=== PATIENT | male | born 1970 | race Caucasian/White ===

== ENCOUNTER 2019-06-09 21:15 | Inpatient (IN) | payer MEDICAID, OTHER ==
[~2019-06-09] VITALS: Ht 165.1 cm; Wt 99.3 kg
[~2019-06-09 21:15] MED LIST: BENA20TA PO; HYDR-5123 PO; LEVO0.173 PO; OMEP-113 PO
[2019-06-09 21:23] VITALS: BP 128/57
--- NOTE | 2019-06-09 21:26 | NUR ---
PT AMBULATED TO BED 4.
[2019-06-09] MEDS ORDERED: NITROGLYCERIN 0.4 MG TAB SL STA (21:27)
[2019-06-09] MEDS ORDERED: SODIUM CHLORIDE FLUSH 10 ML SYR IVF STA (21:27)
--- NOTE | 2019-06-09 21:30 | NUR ---
48/M PRESENTED TO ED. C/O CHEST PAIN X1 DAY. 10 PAIN REPORTED. INTERMITTENT OVER 3 DAYS. STATES PAIN PRECIPITATED BY BREATHING ON OCCASION THROUGH THE DAY. LEFT SIDED CP. NON-RADIATING. DENIES N/V. NO SOB NOTED. VSS. STATES DID NOT TAKE MEDICATION TO RELIEVE PAIN UPON ARRIVING TO ED. MED HX HTN, HYPOTHYROID. RX DOES NOT REMEMBER MED NAMES. DENIES ALLERGIES. WILL CONTINUE TO MONITOR.
--- NOTE | 2019-06-09 21:43 | NUR ---
X-Ray at bedside.
--- NOTE | 2019-06-09 21:57 | NUR ---
IV ESTABLISHED IN LAC 20G. 1 ATTEMPT. TOLERATED WELL. PAIN HAS DECREASED TO 3/10. NO SIGNS OF DISTRESS. WILL COTNINUE TO MONITOR.
[2019-06-09 22:03] LABS: BASOPHILS # (AUTO) 0.1 K/uL (0.00-0.22); BASOPHILS % (AUTO) 0.8 % (0.0-2.0); EOSINOPHILS # (AUTO) 1.1 K/uL (0-0.4); EOSINOPHILS % (AUTO) 11.5 % (0.0-4.0); HEMATOCRIT 45.5 % (36-52); HEMOGLOBIN 15.3 g/dL (12.0-18.0); LYMPHOCYTES # (AUTO) 3.6 K/uL (2.0-11.5); LYMPHOCYTES % (AUTO) 39.3 % (20.5-51.1); MEAN CORPUSCULAR HEMOGLOBIN 29 pg (27-31); MEAN CORPUSCULAR HGB CONC 34 g/dL (33-37); MEAN CORPUSCULAR VOLUME 86.8 fL (80-94); MONOCYTES # (AUTO) 0.8 K/uL (0.8-1.0); MONOCYTES % (AUTO) 8.5 % (1.7-9.3); NEUTROPHILS # (AUTO) 3.6 K/uL (1.8-7.7); NEUTROPHILS % (AUTO) 39.9 % (42.2-75.2); PLATELET COUNT (AUTO) 273 K/uL (140-450); RED BLOOD CELL COUNT(AUTO) 5.24 MIL/uL (4.20-6.10); RED CELL DISTRIBUTION WIDTH 14.7 % (11.6-13.7); WHITE BLOOD COUNT (AUTO) 9.1 K/uL (4.8-10.8)
[2019-06-09 22:15] LABS: ANION GAP 12.4 (8-16); CARBON DIOXIDE 24.2 mmol/L (21-32); CREATININE 1.2 mg/dL (0.7-1.3); POTASSIUM 3.6 mmol/L (3.5-5.1)
--- NOTE | 2019-06-09 22:15 | NUR ---
Dr. Thomas examining patient.
[2019-06-09 22:32] LABS: ALBUMIN 3.1 g/dL (3.4-5.0); TOTAL BILIRUBIN 0.3 mg/dL (0.0-1.0)
[2019-06-09] MEDS ORDERED: hePARIN / DEXT 5% PREMIX 250 ML IV ONE (22:45)
[2019-06-09] MEDS ORDERED: NITROGLYCERIN 0.4 MG TAB SL ONE (22:45)
[2019-06-09] MEDS ORDERED: HEPARIN PER PHARMACY MC PRN ×2 (22:45→23:40)
[2019-06-09] MEDS ORDERED: NACL 0.9% 1,000 ML IV ONE (22:45)
[2019-06-09] MEDS ORDERED: ATOR20TA PO (22:48)
--- NOTE | 2019-06-09 22:56 | NUR ---
Dr. Rea examining patient.
[2019-06-09 23:30] VITALS: BP 119/69
--- NOTE | 2019-06-09 23:30 | NUR ---
Patient will be admitted to care of [facility]. Admited to TELE FLOOR. Will go to room 105 BED A. Belongings list completed. Report to ARABELLA MILLIGAN. BELONGINGS KEPT WITH PATIENT. AT BEDSIDE. PT IN STABLE CONDITION.
--- NOTE | 2019-06-09 23:30 | NUR ---
REVCIEVED PT AAOX4 , WITH C/O CHEST PAIN /GURNEY FROM ER , ON PRODUCT BUILDER, IV SITE INTACT AND PATENT , AMBULATES TO BED , ADMISSION ASSESSMENT DONE , MRSA SPECIMEN COLLECTED AND SENT TO LAB.PLAN OF CARE DISCUSSED AND VEBALIZE UNDERSTANDING . PUT ON FALL /SAFETY PRECAUTION PROTOCOL , CALL LIGHT WITHIN REACH .WILL CONT. TO MONITOR.-ON CLOSELY WATCH.
--- NOTE | 2019-06-09 23:30 | NUR ---
ENDORSED TO BIOLOGICAL INSPECTOR RN ARABELLA OF [place] STILL INFUSING. AND HEPRIN DRIP UNABLE TO BE ADMINISTERED IN ED DUE TO NO PTT LAB VALUE AT THIS TIME. ENDORSED HEPRIN DRIP ORDERS WILL BE CONTINUED ON MST FLOOR PER DR ORDERS.
[2019-06-09] MEDS ORDERED: DOCUSATE SODIUM 100 MG GELCAP PO PRN (23:35)
[2019-06-09] MEDS ORDERED: ACETAMINOPHEN 325 MG TAB PO PRN (23:35)
[2019-06-09] MEDS ORDERED: HYDROcodone/APAP 7.5/325 MG 1 TAB PO PRN (23:35)
[2019-06-09] MEDS ORDERED: FAMOTIDINE 20 MG/2 ML VIAL IV PRN (23:35)
[2019-06-09] MEDS ORDERED: LORazepam 2 MG/ML VIAL IM/IVP PRN (23:35)
[2019-06-09] MEDS ORDERED: ONDANSETRON 4 MG/2 ML VIAL IM/IVP PRN (23:35)
[2019-06-09] MEDS ORDERED: hePARIN / DEXT 5% PREMIX 250 ML IV SCH (23:40)
[2019-06-10] MEDS ORDERED: ASPIRIN 81 MG TAB.CHEW PO SCH
[2019-06-10] MEDS ORDERED: hePARIN / DEXT 5% PREMIX 250 ML IV SCH (00:05)
[2019-06-10 00:14] LABS: PROTHROMBIN TIME 10.2 secs (10.8-13.4)
[2019-06-10] MEDS: MORPHINE SULFATE 2 MG/ML SYR IVP PRN (00:16)
[2019-06-10 00:22] LABS: CHOL/HDL RATIO 7.1 (1-4.5); FREE T4 (FREE THYROXINE) 1.09 ng/dL (0.76-1.46); PHOSPHORUS 4.2 mg/dL (2.5-4.9); THYROID STIMULATING HORMONE 0.59 uIU/mL (0.34-3.74)
--- NOTE | 2019-06-10 01:11 | NUR ---
HEPARIN DRIP GIVEN ORDERED .EXPLAIN TO THE PT THE INDICATION AND SIDE EEFECTS OF MEDICINE -VERBALIZE UNDERSTANDING.
--- NOTE | 2019-06-10 02:00 | NUR ---
MADE ROUINDS , RESP EVEN AND UNLABORED , WITH MINIMIZE CHEST PAIN HE SAID , WILL CONT. TO MONITOR. , ACLL LIGHT WITHIN REACH
[2019-06-10 04:00] VITALS: BP 119/79
--- NOTE | 2019-06-10 04:00 | NUR ---
MADE ROUNDS , MINIMIZE CHEST PAIN HE SAID ,RESP. EVEN AND UNLABORED , CALL LIGHT WITHIN REACH , WILL CONT. TO MONITOR.
[2019-06-10] MEDS: PANTOPRAZOLE 40 MG INJ VIAL IVP SCH (06:23)
[2019-06-10] MEDS: LEVOTHYROXINE 0.1 MG, LEVOTHYROXINE 0.075 MG PO SCH ×2 (06:26)
[2019-06-10] MEDS ORDERED: LEVOTHYROXINE 0.025 MG TAB PO SCH (06:30)
--- NOTE | 2019-06-10 07:14 | NUR ---
ENDORSED TO AM SHIFT FOR CONT. OF CARE .
--- NOTE | 2019-06-10 07:15 | NUR ---
RECEIVED REPORT FROM DIRECTOR BROADCAST NURSE. PATIENT LYING DOWN IN BED SLEEPING, AROUSABLE BY VOICE. NO DISTRESS NOTED. DENIES ANY PAIN AT THIS TIME. AAOX4, CALM, COOPERATIVE, SKIN COLOR APPROPRIATE TO ETHNICITY, WARM TO TOUCH. SKIN INTACT. RESPIRATIONS EVEN, UNLABORED, ON ROOM AIR. ABDOMEN SOFT, OBESE. IV SITES INTACT, PATENT, AND INFUSING HEP DRIP AND IVF PER MD ORDERS. REVIEWED PLAN OF CARE WITH PATIENT. PATIENT VERBALIZED UNDERSTANDING. SAFETY MEASURES IN PLACE, CALL LIGHT WITHIN REACH. WILL CONTINUE TO MONITOR.
[2019-06-10 08:00] VITALS: BP 125/87
[2019-06-10 08:09] LABS: BASOPHILS # (AUTO) 0.1 K/uL (0.00-0.22); BASOPHILS % (AUTO) 0.9 % (0.0-2.0); EOSINOPHILS # (AUTO) 1.1 K/uL (0-0.4); EOSINOPHILS % (AUTO) 14.2 % (0.0-4.0); HEMATOCRIT 45.9 % (36-52); HEMOGLOBIN 15.3 g/dL (12.0-18.0); LYMPHOCYTES # (AUTO) 2.9 K/uL (2.0-11.5); LYMPHOCYTES % (AUTO) 36.6 % (20.5-51.1); MEAN CORPUSCULAR HEMOGLOBIN 29 pg (27-31); MEAN CORPUSCULAR HGB CONC 33 g/dL (33-37); MEAN CORPUSCULAR VOLUME 87.6 fL (80-94); MONOCYTES # (AUTO) 0.5 K/uL (0.8-1.0); MONOCYTES % (AUTO) 5.8 % (1.7-9.3); NEUTROPHILS # (AUTO) 3.4 K/uL (1.8-7.7); NEUTROPHILS % (AUTO) 42.5 % (42.2-75.2); PLATELET COUNT (AUTO) 264 K/uL (140-450); RED BLOOD CELL COUNT(AUTO) 5.24 MIL/uL (4.20-6.10)
[2019-06-10 08:22] LABS: ANION GAP 14.5 (8-16); CARBON DIOXIDE 25.5 mmol/L (21-32); CREATININE 1.1 mg/dL (0.7-1.3)
[2019-06-10] MEDS: ASPIRIN 81 MG TAB.CHEW PO SCH (08:52)
[2019-06-10] MEDS: BENAZEPRIL 20 MG TAB PO SCH (08:54)
--- NOTE | 2019-06-10 09:00 | NUR ---
PER NIGHT RN AND PER PATIENT, PATIENT HAD BM LAST NIGHT, HOWEVER, IT WAS A NORMAL, FORMED BM, THUS NOT MEETING THE CDIFF CRITERIA PER NIGHT RN AND NIGHT CIRCLE EDGER REPORTS. NOTIFIED DR. TELLEZ. DR. TELLEZ VERBALIZED UNDERSTANDING.
[2019-06-10] MEDS: METOPROLOL 25 MG TAB PO SCH ×2 (09:01→20:50)
--- NOTE | 2019-06-10 09:08 | NUR ---
PATIENT SITTING IN BED. NO DISTRESS NOTED. DENIES ANY PAIN. SCHEDULED MEDICATIONS DUE GIVEN. WILL CONTINUE TO MONITOR.
[2019-06-10] MEDS ORDERED: LIDOCAINE VISCOUS 2% 20 ML UDC PO SCH (09:25)
[2019-06-10] MEDS ORDERED: ALUMINUM HYD/MAG/SIMETHICONE 30 ML UDC PO SCH (09:25)
[2019-06-10] MEDS ORDERED: DICYCLOMINE HCL LIQUID 10 MG/5 ML UDC PO SCH (09:25)
--- NOTE | 2019-06-10 10:15 | NUR ---
DR. ALVAREZ AT BEDSIDE REVIEWING PLAN OF CARE WITH PATIENT. PER DR. ALVAREZ VERBAL ORDERS, DISCONTINUE HEPARIN DRIP AT THIS TIME. WILL CONTINUE TO MONITOR.
[2019-06-10 12:00] VITALS: BP 108/75
--- NOTE | 2019-06-10 12:14 | NUR ---
PATIENT SITTING IN BED WITH LUNCH TRAY. FAMILY MEMBER AT BEDSIDE. SCHEDULED MEDICATIONS DUE GIVEN. WILL CONTINUE TO MONITOR.
--- NOTE | 2019-06-10 14:30 | NUR ---
PATIENT SITTING DOWN IN BED TALKING WITH FAMILY MEMBERS AT BEDSIDE. CONDITION UNCHANGED. WILL CONTINUE TO MONITOR.
[2019-06-10 16:00] VITALS: BP 115/78
--- NOTE | 2019-06-10 16:00 | NUR ---
PATIENT WALING AROUND [facility] WITH STEADY GAIT. FAMILY AT BEDSIDE. WILL CONTINUE TO MONITOR.
[2019-06-10] MEDS: NACL 0.9% 1,000 ML IV SCH ×2 (17:50)
--- NOTE | 2019-06-10 18:30 | NUR ---
PATIENT SITTING DOWN IN BED TALKING WITH FAMILY MEMBERS AT BEDSIDE. CONDITION UNCHANGED. WILL CONTINUE TO MONITOR.
--- NOTE | 2019-06-10 19:19 | NUR ---
GAVE REPORT TO MUTUAL FUND MANAGER NURSE FOR CONTINUITY OF CARE. PATIENT IN STABLE CONDITION.
--- NOTE | 2019-06-10 19:20 | NUR ---
RECEIVED PT ON BED, AAOX4, ABLE TO MAKE NEEDS KNOWN, VITAL SIGNS STABLE, DENIES ANY PAIN, NO SOB NOTED, IVF INFUSING WELL, PLAN OF CARE DISCUSSED, SAFETY MEASURES IN PLACE, CALL LIGHT WITHIN REACH.
[2019-06-10 20:00] VITALS: BP 122/82
[2019-06-10] MEDS: ATORVASTATIN 20 MG TAB PO SCH (20:49)
--- NOTE | 2019-06-10 21:00 | NUR ---
DUE PO MEDS ADMINISTERED WITH EDUCATION PROVIDED, PT AMBULATED TO BR WITH STEADY GAIT, VOIDED FREELY AND HAD A BM, STOOL IS SOFT, NOT QUALIFIED FOR C-DIFF, CHARGE CARLOS MADE AWARE, URINE SPECIMEN SENT TO LAB FOR TEST, ALL NEEDS ATTENDED.
[2019-06-10 22:44] LABS: APPEARANCE,URINE CLEAR (CLEAR); BILIRUBIN,URINE NEGATIVE (NEGATIVE); BLOOD, URINE TRACE-I (NEGATIVE); LEUKOCYTE ESTERASE ,URINE NEGATIVE (NEGATIVE); NITRITE, URINE NEGATIVE (NEGATIVE); PH,URINE 5.5 (5.0-9.0); UGLUCOSE NEGATIVE (NEGATIVE)
[2019-06-10 22:46] LABS: COLOR,URINE STRAW (YELLOW)
[2019-06-10 23:57] LABS: RBC,URINE 0-5 /HPF (0-5); WBC,URINE NONE SEEN /HPF (0-5)
[2019-06-11] VITALS: BP 119/76
--- NOTE | 2019-06-11 | NUR ---
PT SLEEPING, EASILY AROUSABLE, VITAL SIGNS STABLE, SB ON TELE, ASYMPTOMATIC, DENIES ANY PAIN, IVF INFUSING WELL, CONTINUE TO MONITOR CLOSELY.
[2019-06-11 04:00] VITALS: BP 113/75
--- NOTE | 2019-06-11 04:00 | NUR ---
PT SLEEPING, EASILY AROUSABLE TO NAME, VITAL SIGNS STABLE, SB-SR ON TELE, DENIES ANY PAIN, NO SOB NOTED, IVF INFUSING WELL, MONITORED CLOSELY.
[2019-06-11] MEDS: LEVOTHYROXINE 0.1 MG, LEVOTHYROXINE 0.075 MG PO SCH ×2 (05:51)
[2019-06-11] MEDS: PANTOPRAZOLE 40 MG INJ VIAL IVP SCH (05:53)
--- NOTE | 2019-06-11 05:55 | NUR ---
DUE PO MEDS GIVEN, TOLERATED WELL, DENIES ANY PAIN, IVF INFUSING WELL, MONITORED CLOSELY.
--- NOTE | 2019-06-11 06:55 | NUR ---
PT SCHEDULE FOR LEXISCAN AT 1400 TODAY AND PT STATED THAT HE CAN'T TOLERATE WITHOUT EATING FOR THAT LONG TIME, PER REPORT FROM TOBIAS MILLIGAN, DR ALVAREZ IS KATHI FOR PT TO HAVE LIGHT BREAKFAST WITHOUT CAFFEINE THIS MORNING, TALKED TO DR CAMACHO AND MADE HIM AWARE, STATED IT'E KATHI TO HAVE BREAKFAST IF DR ALVAREZ IS KATHI WITH IT, LEFT MESSAGE TO DIETARY, WILL ENDORSE.
--- NOTE | 2019-06-11 07:30 | NUR ---
PT AWAKE, NO SIGNS OF DISTRESS, REPORT GIVEN TO SRINI MATTA FOR CONTINUITY OF CARE.
--- NOTE | 2019-06-11 07:35 | NUR ---
RECEIVED REPORT FROM SERVICE CENTER TECHNICIAN NURSE. PATIENT LYING DOWN IN BED SLEEPING, AROUSABLE TO VOICE. NO DISTRESS NOTED. DENIES ANY PAIN AT THIS TIME. AAOX4, CALM, COOPERATIVE, SKIN COLOR APPROPRIATE TO ETHNICITY, WARM TO TOUCH. SKIN IS INTACT. RESPIRATIONS EVEN AND UNLABORED, ON ROOM AIR. ABDOMEN SOFT AND NON-TENDER. IV SITES INTACT, PATENT, AND INFUSING NS @ 100ML/HR. REVIEWED PLAN OF CARE WITH PATIENT. PATIENT VERBALIZED UNDERSTANDING. SAFETY MEASURES IN PLACE, CALL LIGHT WITHIN REACH. WILL MONITOR PT CLOSELY.
[2019-06-11 08:00] VITALS: BP 123/81
[2019-06-11] MEDS: BENAZEPRIL 20 MG TAB PO SCH (08:25)
[2019-06-11] MEDS: METOPROLOL 25 MG TAB PO SCH ×2 (08:25→20:51)
--- NOTE | 2019-06-11 08:25 | NUR ---
MORNING BP MEDS NOT ADMINISTERED DUE TO PT HAVING STRESS TEST AND LEXISCAN LATER. PER MD ORDERS TO HOLD MORNING BP MEDS. PT BP STABLE AT THIS TIME AT 123/81 AND HR 75.
--- NOTE | 2019-06-11 08:27 | NUR ---
PATIENT HAS BEEN SCREENED AND CATEGORIZED HIGH NUTRITION RISK. PATIENT WILL BE SEEN WITHIN 1-2 DAYS OF ADMISSION. 06/11/[address]
[2019-06-11] MEDS: ASPIRIN 81 MG TAB.CHEW PO SCH (08:41)
--- NOTE | 2019-06-11 08:54 | NUR ---
ADMINISTERED MORNING MEDS TO PT. PT TOLERATED THEM WILL. WILL CONTINUE TO ROUND FREQUENTLY ON PT. BED IN LOW POSITION, CALL LIGHT WITHIN REACH.
--- NOTE | 2019-06-11 10:47 | NUR ---
PT RESTING IN BED. ALL NEEDS MET. WILL CONTINUE TO ROUND FREQUENTLY ON PT. BED IN LOW POSITION, CALL LIGHT WITHIN REACH.
[2019-06-11 12:00] VITALS: BP 119/78
--- NOTE | 2019-06-11 12:38 | NUR ---
PT RESTING IN BED WITH AT BEDSIDE. PT AWAITING LEXISCAN. ALL NEEDS MET. WILL CONTINUE TO ROUND FREQUENTLY ON PT. BED IN LOW POSITION, CALL LIGHT WITHIN REACH.
[2019-06-11] MEDS: MORPHINE SULFATE 2 MG/ML SYR IVP PRN (13:26)
[2019-06-11] MEDS ORDERED: REGADENOSON 0.4 MG/5 ML SYR IV ONE (14:00)
--- NOTE | 2019-06-11 14:02 | NUR ---
PT TAKEN TO NUCLEAR MEDICINE FOR LEXISCAN. PT LEFT IN STABLE CONDITION.
--- NOTE | 2019-06-11 15:29 | NUR ---
06/11/19 RD INITIAL ASSESSMENT COMPLETED PLEASE REFER TO NUTRITION ASSESSMENT UNDER CARE ACTIVITY FOR ESTIMATED NUTRITIONAL NEEDS. 1. CONTINUE NPO MEDICALLY NECESSARY 2. WHEN MEDICALLY APPROPRIATE CONSIDER ADVANCING DIET TO CARDIAC 3. RD OFFERED NUTRITION EDUCATION ON HEART HEALTHY DIET 4. RD TO FOLLOW-UP 5-7 DAYS, LOW RISK [address]
[2019-06-11 16:00] VITALS: BP 125/76
--- NOTE | 2019-06-11 16:19 | NUR ---
PT RETURN[facility] FROM [facility]. PT IN STABLE CONDITION. VITAL SIGNS STABLE. WILL CONTINUE TO ROUND FREQUENTLY ON PT.
[2019-06-11] MEDS: NACL 0.9% 1,000 ML IV SCH (16:40)
--- NOTE | 2019-06-11 18:34 | NUR ---
PT RESTING IN BED WITH AT BEDSIDE. ALL NEEDS MET. WILL CONTINUE TO ROUND FREQUENTLY ON PT.
--- NOTE | 2019-06-11 19:39 | NUR ---
ENDORSED PT TO INSTRUMENTATION MANAGER FOR CONTINUITY OF CARE. PT IN STABLE CONDITION AT THIS TIME.
--- NOTE | 2019-06-11 19:40 | NUR ---
RECEIVED BEDSIDE REPORT FROM DAY SHIFT NURSE. SPOUSE AT BEDSIDE. NO S/S OF SOB NOTED ON ROOM AIR. NO DISTRESS NOTED. DENIES ANY PAIN AT THIS TIME. AAOX4, ABLE TO MAKE NEED KNOWN. COOPERATIVE, SKIN WARM AND DRY TO TOUCH. SKIN IS INTACT. IV SITES ON LAC 20G. INTACT, PATENT, AND ASYMPTOMATIC. REVIEWED PLAN OF CARE WITH PATIENT. PATIENT VERBALIZED UNDERSTANDING. SAFETY MEASURES IN PLACE, CALL LIGHT WITHIN REACH. WILL MONITOR.
[2019-06-11 20:00] VITALS: BP_SYST 114; BP_SYST 119; BP_DIAS 72; BP_DIAS 75
[2019-06-11] MEDS: ATORVASTATIN 20 MG TAB PO SCH (20:46)
--- NOTE | 2019-06-11 20:50 | NUR ---
ADMINISTERED LIPITOR AND HEPARIN MD ORDERED. PT TOLERATED WELL. METOPROLOL HELD D/T PT HAVING STRESS TEST AND LEXISCAN. PER MD ORDERS TO HOLD. PT BP STABLE AT THIS TIME AT 114/72 AND HR 74.
--- NOTE | 2019-06-11 23:50 | NUR ---
VS CHECKED. WITHIN NORMAL RANGE. WILL CONTINUE TO MONITOR.
[2019-06-12] VITALS: BP 119/75
--- NOTE | 2019-06-12 02:05 | NUR ---
PT SLEEPING IN BED. BREATHING EVEN AND UNLABORED. BED IN LOW POSITION, CALL LIGHT WITHIN REACH.
[2019-06-12 04:00] VITALS: BP 119/78
--- NOTE | 2019-06-12 04:00 | NUR ---
VS CHECKED, WITHIN PT'S BASELINE. WILL CONTINUE TO MONITOR.
[2019-06-12] MEDS: LEVOTHYROXINE 0.1 MG, LEVOTHYROXINE 0.075 MG PO SCH ×2 (05:59)
[2019-06-12] MEDS: PANTOPRAZOLE 40 MG INJ VIAL IVP SCH (05:59)
--- NOTE | 2019-06-12 05:59 | NUR ---
GIVEN SYNTHROID AND PROTONIX MD ORDERED. PT TOLERATED WELL.
--- NOTE | 2019-06-12 06:58 | NUR ---
PT STATES NO DIARRHEA SINCE ADMISSION ON 06/09/19. D/C C.DIFF
--- NOTE | 2019-06-12 07:25 | NUR ---
RECEIVED REPORT FROM PAINT ROLLER COVER MACHINE SETTER RNMINE. PATIENT IS AWAKE AND RESTING IN BED. NO SIGNS OF DISTRESS ON RA, NO C/O PAIN, NO CHEST PAIN FOR 24 HOURS. RESPIRATIONS EVEN AND UNLABORED. BED IS LOW, CALL LIGHT IN REACH. IV INFUSING WELL TO L AC 20 GAUGE AT 10ML/HR. NO SIGNS OF IRRITATION AT IV SITE.
[2019-06-12 07:41] LABS: PHOSPHORUS 3.5 mg/dL (2.5-4.9)
[2019-06-12 07:50] LABS: ANION GAP 14.9 (8-16); CARBON DIOXIDE 25.4 mmol/L (21-32); POTASSIUM 4.3 mmol/L (3.5-5.1)
[2019-06-12 08:00] VITALS: BP 124/77
[2019-06-12 08:15] LABS: BASOPHILS # (AUTO) 0.1 K/uL (0.00-0.22); EOSINOPHILS # (AUTO) 0.9 K/uL (0-0.4); HEMATOCRIT 49.2 % (36-52); HEMOGLOBIN 16.5 g/dL (12.0-18.0); LYMPHOCYTES # (AUTO) 3.3 K/uL (2.0-11.5); LYMPHOCYTES % (AUTO) 36.2 % (20.5-51.1); MEAN CORPUSCULAR HEMOGLOBIN 29 pg (27-31); MEAN CORPUSCULAR HGB CONC 34 g/dL (33-37); MEAN CORPUSCULAR VOLUME 86.9 fL (80-94); MONOCYTES # (AUTO) 0.6 K/uL (0.8-1.0); MONOCYTES % (AUTO) 6.8 % (1.7-9.3); NEUTROPHILS # (AUTO) 4.2 K/uL (1.8-7.7); PLATELET COUNT (AUTO) 288 K/uL (140-450); RED BLOOD CELL COUNT(AUTO) 5.66 MIL/uL (4.20-6.10); RED CELL DISTRIBUTION WIDTH 14.5 % (11.6-13.7); WHITE BLOOD COUNT (AUTO) 9.1 K/uL (4.8-10.8)
[2019-06-12] MEDS ORDERED: ASPI-1718 PO (09:20)
[2019-06-12] MEDS ORDERED: MELA5TAB6 PO (09:20)
[2019-06-12] MEDS: ASPIRIN 81 MG TAB.CHEW PO SCH (09:37)
[2019-06-12] MEDS: METOPROLOL 25 MG TAB PO SCH (09:40)
[2019-06-12] MEDS: BENAZEPRIL 20 MG TAB PO SCH (09:40)
--- NOTE | 2019-06-12 09:51 | NUR ---
ADMINISTERED SCHEDULED MEDICATION. PATIENT TOLERATED WELL. NO C/O CHEST PAIN, BREATHING IS EVEN AND UNLABORED ON RA. VITALS ARE STABLE. BED IS LOW, CALL LIGHT IS IN REACH. FAMILY AT BEDSIDE.
[2019-06-12 11:23] VITALS: BP 124/77
[2019-06-12 12:00] VITALS: BP 113/64
--- NOTE | 2019-06-12 12:20 | NUR ---
PATIENT DISCHARGED TO HIS HOME, ACCOMPANIED BY HIS . PROVIDED DISCHARGE INSTRUCTIONS TO PATIENT AND FAMILY, INCLUDING NEW MEDICATIONS, INDICATIONS, ACTIONS AND SIDE EFFECTS. EDUCATED PATIENT ON FOLLOW UP APPOINTMENTS AND SIGNS AND SYMPTOMS FOR WHICH TO SEEK MEDICAL ATTENTION. PATIENT VERBALIZED UNDERSTANDING. REMOVED 20 GAUGE IV CATHETER FROM LEFT AC, TIP INTACT. REMOVED WRIST BANDS. PATIENT AMBULATED FROM UNIT AND HOSPITAL WITH STEADY GAIT ACCOMPANIED BY HIS FAMILY AND IN POSSESSION OF ALL HIS BELONGINGS.
== END 2019-06-12 12:20 | disposition home or self-care (01) | DRG 243 ==
LOC: MED 21:15 → MTU 23:15 → MMU 06-10 17:40
PROVIDERS: ADMIT General Practice; ATTEND General Practice
DX: K21.9 Gastro-esophageal reflux disease without esophagitis (principal); I21.A1 Myocardial infarction type 2; E44.0 Moderate protein-calorie malnutrition; E03.9 Hypothyroidism, unspecified; E78.5 Hyperlipidemia, unspecified; M75.101 Unspecified rotator cuff tear or rupture of right shoulder, not specified as traumatic; Z68.36 Body mass index [BMI] 36.0-36.9, adult; I10 Essential (primary) hypertension; M94.0 Chondrocostal junction syndrome [Tietze]; G47.00 Insomnia, unspecified
CPT/HCPCS: 36415; 71045; 80048; 80053; 81001; 82140; 82150; 82272; 83036; 83605; 83690; 83735; 83880; 84100; 84439; 84443; 84484; 85025; 85610; 85730; 87081; 93005; 93017; 96360; 99285; A9500; A9502; C9113; J1644; J2270; J2785; J7030; Q0092